=== PATIENT | female | born 2000 | race Caucasian/White ===

== ENCOUNTER → 2019-10-14 | Outpatient (CLI) | payer OTHER ==
[~2019-10-14] MED LIST: ESCI20TA10 PO
--- NOTE | 2019-10-14 17:54 | DIREP ---
PROCEDURE:US EXTREMITY LOWER SOFT TISSUE COMPARISON:None. INDICATIONS:SOFT TISSUE DISORDER TECHNIQUE:Sonography of the bilateral kemp region was performed using grayscale and color Doppler imaging. FINDINGS: MASSES:A 0.7 x 0.3 x 0.5 cm heterogeneous lesion is identified in the subcutaneous tissues of the left kemp. There is no significant internal vascularity. FLUID COLLECTIONS:None. OTHER:Negative. CONCLUSION:Mild subcutaneous edema in bilateral lower extremities. Nonspecific hypoechoic focus in the subcutaneous tissues of the left kemp, favored to be benign, and possibly representing subcutaneous edema or sequela of prior trauma. Consider repeat imaging if enlarging. Dictated by: [facility] Phys[facility] on 10/14/2019 at 05:29 PM ac
== END | disposition home or self-care (01) ==
LOC: RAD 15:42
PROVIDERS: ATTEND Nurse Practitioner Family
DX: R60.0 Localized edema (principal); M79.9 Soft tissue disorder, unspecified
CPT/HCPCS: 76882

== ENCOUNTER → 2019-12-27 | Outpatient (CLI) | payer OTHER ==
--- NOTE | 2019-12-27 16:00 | DIREP ---
PROCEDURE:CT LOWER EXTREMITY-BILAT W/O COMPARISON:None. INDICATIONS:M79.9 SOFT TISSUE DISORDER TECHNIQUE:Axial images were obtained from above the knees to above the ankles. Sagittal and coronal reformatted images were also obtained. FINDINGS: BONES:Normal. JOINTS:Normal SOFT TISSUES:There are edematous changes superficial to the medial mid tibial shafts bilaterally. No mass lesion or abscess is identified. The muscles and tendons are normal. The neurovascular structures are normal. OTHER:Negative. CONCLUSION:Findings are consistent with medial tibial stress syndrome (kemp splints). Dictated by: Kwame Zheng M.D. on 12/27/2019 at 03:51 PM
== END | disposition home or self-care (01) ==
LOC: RAD 15:09
PROVIDERS: ATTEND Nurse Practitioner Family
DX: M79.9 Soft tissue disorder, unspecified (principal)
CPT/HCPCS: 73700

== ENCOUNTER → 2021-09-09 | Outpatient (CLI) | payer OTHER | END | disposition home or self-care (01) | LOC: LAB 15:39 | PROVIDERS: ATTEND Nurse Practitioner Family | DX: N91.2 Amenorrhea, unspecified (principal) | CPT/HCPCS: 36415; 84703 ==